=== PATIENT | male | born 2000 ===

== ENCOUNTER 2018-06-16 20:15 | Emergency (ER) | payer SELFPAY ==
[2018-06-16] MEDS ORDERED: Ibuprofen TAB* 600 MG PO ONE (20:41)
[2018-06-16] MEDS ORDERED: Dexamethasone IV* 4 MG/ML 1 ML (4 MG) PO ONE (20:41)
[2018-06-16] MEDS ORDERED: cefTRIAXone VIAL(*) 1,000 MG VIAL IM ONE (20:42)
[2018-06-16] MEDS ORDERED: Lidocaine 1%* 5 ML VIAL INJ ONE (20:42)
--- NOTE | 2018-06-16 20:42 | UC ---
Throat Pain/Nasal Steve HPI - HPI Summary HPI Summary: 17-year-old male comes to clinic today with a chief complaint of sore throat. Patient reports he's been sick for about a month with upper respiratory tract infection and sinusitis infection symptoms. He did take one course of antibiotics and his symptoms and approved during that time but they came back right away after finishing antibiotic. His been having frontal headaches. The headache doesn't improve with [id number] medications. Over the last few days he's been having a worsening left-sided sore throat. He talked to his physician from home who sent and a prescription for cefdinir 300 mg by mouth twice a day. Patient has not started that yet. It does hurt to swallow. He denies any shortness of breath. Not complaining of excessive fatigue. - History of Current Complaint Chief Complaint: UCGeneralIllness Stated Complaint: HEADACHE Time Seen by Provider: 06/16/18 20:23 Pain Intensity: 8 - Allergies/Home Medications Allergies/Adverse Reactions: Allergies Allergy/AdvReac Type Severity Reaction Status Date / Time No Known Allergies Allergy Verified 06/16/18 20:32 Home Medications: Home Medications Ibuprofen/Pseudoephedrine HCl [Advil Cold & Sinus Caplet] 1 tab PO BID 06/16/18 [History Confirmed 06/16/18] PMH/Surg Hx/FS Hx/Imm Hx Previously Healthy: Yes - Surgical History Surgical History: Yes Surgery Procedure, Year, and Place: APPY - Family History Known Family History: Positive: Non-Contributory - Social History Alcohol Use: Occasionally Substance Use Type: None Smoking Status (MU): Never Smoked Tobacco Review of Systems All Other Systems Reviewed And Are Negative: Yes Constitutional: Positive: Fever, Chills Skin: Positive: Negative Eyes: Positive: Negative ENT: Positive: Sore Throat, Ear Ache - LEFT, Nasal Discharge, Sinus Congestion, Sinus Pain/Tenderness Respiratory: Positive: Negative Cardiovascular: Positive: Negative Gastrointestinal: Positive: Negative - DECREASED PO INTAKE SECONDARY TO THROAT PAIN Motor: Positive: Negative Neurovascular: Positive: Negative Musculoskeletal: Positive: Negative Neurological: Positive: Headache Psychological: Positive: Negative Is Patient Immunocompromised?: No Physical Exam Triage Information Reviewed: Yes Appearance: Well-Nourished, Ill-Appearing - MILD, Pain Distress - MILD WITH SWALLOWING Vital Signs: Initial Vital Signs Temp 102.9 F 06/16/18 20:25 Pulse 114 06/16/18 20:25 Resp 17 06/16/18 20:25 BP 119/61 06/16/18 20:25 Pulse Ox 98 06/16/18 20:25 Vital Signs Reviewed: Yes Eye Exam: Normal Eyes: Positive: Conjunctiva Clear ENT: Positive: Pharyngeal erythema, Nasal congestion, Nasal drainage, TMs normal , Tonsillar swelling - THE LEFT TONSIL IS SWOLLEN AND TOUCHING THE UVULA WHICH IS MID LINE AND NOT SWOLLEN. NO EXTENSION OF SWELLING TO THE PALATE., Uvula midline. Negative: Muffled voice, Hoarse voice Neck exam: Normal Neck: Positive: Supple Respiratory: Positive: Lungs clear, Normal breath sounds, No respiratory distress Cardiovascular: Positive: Tachycardia Musculoskeletal Exam: Normal Musculoskeletal: Positive: Strength Intact, ROM Intact Neurological Exam: Normal Neurological: Positive: Alert, Muscle Tone Normal Psychological Exam: Normal Psychological: Positive: Normal Response To Family, Age Appropriate Behavior Skin Exam: Normal Throat Pain/Nasal Course/Dx - Course Course Of Treatment: On examination I do not appreciate a peritonsillar abscess at this time. The swelling appears to be completely within the left tonsil. The left tonsil does touch the uvula which is midline. The right tonsil is also some slightly swollen but it does not touch the uvula. I discussed this patient I discussed this patient with the ENT on-call Dr. Persaud. In clinic gave the patient a liter of normal saline Decadron 10 mg IV and Rocephin 1 g IV and acetaminophen 975 mg by mouth. Patient will continue on cefdinir 300 mg by mouth twice a day. I put in for an ENT consultation. Patient will follow-up with them. If overnight patient has difficulty with breathing or any airway issues or is feeling worse he is to go directly to the emergency department. Overall we expect improvement take about 48 hours. This was all discussed with the patient and his brother. - Differential Dx/Diagnosis Provider Diagnosis: Tonsillitis Discharge - Sign-Out/Discharge Documenting (check all that apply): Patient Departure All imaging exams completed and their final reports reviewed: No Studies - Discharge Plan Condition: Stable Disposition: HOME Prescriptions: predniSONE TAB* [Deltasone 20 MG TAB*] 20 mg PO DAILY #4 tab Patient Education Materials: Tonsillitis (ED) Referrals: Lg Persaud MD [Medical Doctor] - Additional Instructions: FOLLOW UP WITH DR PERSAUD, ENT. GO TO THE EMERGENCY DEPARTMENT FOR ANY WORSENING OF YOUR CONDITION; DIFFICULTY BREATHING OR SWALLOWING, DEHYDRATION, YOU FEEL ILL OR QUESTIONS OR CONCERNS. - Billing Disposition and Condition Condition: STABLE Disposition: Home
[2018-06-16] MEDS ORDERED: Dexamethasone IV* 4 MG/ML 1 ML (4 MG) IV SLOW PU ONE (20:46)
[2018-06-16] MEDS ORDERED: NS 0.9% 1000 ML** 1,000 ML IV ONE (20:47)
[2018-06-16] MEDS ORDERED: Acetaminophen TAB* 325 MG PO ONE (20:49)
[2018-06-16] MEDS ORDERED: Ketorolac INJ* 30 MG/ML 1 ML VIAL IV PUSH ONE (20:49)
[2018-06-16] MEDS ORDERED: cefTRIAXone VIAL(*) 1,000 MG VIAL IVPB ONE (20:50)
[2018-06-16] MEDS ORDERED: predniSONE TAB* 20 MG PO ONE (21:40)
[2018-06-16 22:32] VITALS: BP 125/64
[2018-06-17 10:57] LABS: ABS Basophils 0 10^3/ul (0-0.2); ABS Eosinophils 0 10^3/ul (0-0.6); ABS Lymphocytes 0.6 10^3/ul (1.0-4.8); ABS Monocytes 1.2 10^3/ul (0-0.8); ABS Neutrophils 15.7 10^3/ul (1.5-7.7); ABS Nucleated RBC 0 10^3/ul; Eosinophil % 0 %; Hematocrit 44 % (36-46); Hemoglobin 14.7 g/dL (14.0-18.0); Lymphocyte % 3.4 %; Mean Corpuscular HGB Conc 34 g/dL (31-36); Mean Corpuscular Hemoglobin 31 pg (27-31); Mean Corpuscular Volume 91 fL (80-94); Mean Platelet Volume 10.5 fL (7.4-10.4); Nucleated Red Blood Cells % 0.2; Platelet Count 201 10^3/uL (150-450); Red Blood Count 4.81 10^6 /uL (4.18-5.48); Red Cell Distribution Width 13 % (10.5-15); White Blood Count 17.5 10^3/uL (3.5-10.8)
--- NOTE | 2018-06-17 22:54 | UC ---
- Progress Note Progress Note: Labs including CBC, mono spot, and CRP reviewed. WBC 17.5, abs neutrophils 15.7 without left shift, mono negative, CRP elevated at 113.39. Patient was referred to ENT for possible peritonsilar abscess. Patient was called with results and was currently awaiting his appointment with ENT. Results faxed to the office for review. No change in POC. Course/Dx - Diagnoses Provider Diagnoses: Tonsillitis Discharge - Sign-Out/Discharge Documenting (check all that apply): Post-Discharge Follow Up All imaging exams completed and their final reports reviewed: No Studies - Discharge Plan Condition: Stable Disposition: HOME Prescriptions: predniSONE TAB* [Deltasone 20 MG TAB*] 20 mg PO DAILY #4 tab Patient Education Materials: Tonsillitis (ED) Forms: *School Release Referrals: gL Persaud MD [Medical Doctor] - Additional Instructions: FOLLOW UP WITH DR PERSAUD, ENT. GO TO THE EMERGENCY DEPARTMENT FOR ANY WORSENING OF YOUR CONDITION; DIFFICULTY BREATHING OR SWALLOWING, DEHYDRATION, YOU FEEL ILL OR QUESTIONS OR CONCERNS. - Billing Disposition and Condition Condition: STABLE Disposition: Home
== END 2018-06-16 22:29 | disposition home or self-care (01) ==
LOC: UCEAST 20:15
DX: J03.90 Acute tonsillitis, unspecified (principal); H92.02 Otalgia, left ear; J34.89 Other specified disorders of nose and nasal sinuses; R09.81 Nasal congestion
CPT/HCPCS: 36415; 85025; 86140; 86308; 86664; 86665; 96360; 96365; 96374; 99202; A9270-GY; G0463; J0696; J1100; J1885; J7512